=== PATIENT | male | born 1975 | race Caucasian/White ===

== ENCOUNTER → 2018-03-09 | Outpatient (CLI) | payer OTHER ==
[~2018-03-09] MED LIST: FLEXERIL5 MG PO; MOTRIN600 MG PO
== END | disposition home or self-care (01) ==
LOC: RES 12:35
DX: I26.99 Other pulmonary embolism without acute cor pulmonale (principal)
CPT/HCPCS: 94060; 94726; 94729

== ENCOUNTER → 2018-03-28 | Outpatient (CLI) | payer OTHER | END | disposition home or self-care (01) | LOC: EKG 13:56 | DX: I05.1 Rheumatic mitral insufficiency (principal); I07.1 Rheumatic tricuspid insufficiency; I27.20 Pulmonary hypertension, unspecified; I51.89 Other ill-defined heart diseases; Z86.711 Personal history of pulmonary embolism | CPT/HCPCS: 93306 ==